=== PATIENT | male | born 1970 | race Caucasian/White ===

== ENCOUNTER 2018-06-15 01:51 | Emergency (ER) | payer OTHER ==
[~2018-06-15] VITALS: Ht 170.2 cm; Wt 86.2 kg
[2018-06-15 01:57] VITALS: Ht 170.2 cm; Wt 86.2 kg
[2018-06-15 04:09] VITALS: BP 121/75
== END 2018-06-15 04:09 | disposition home or self-care (01) ==
LOC: ED 01:51
DX: J36 Peritonsillar abscess (principal)
CPT/HCPCS: J0696; J1100; J1885; J3490; J7030